=== PATIENT | male | born 1965 | race Caucasian/White ===

== ENCOUNTER 2022-11-11 08:10 | Outpatient (CLI) | payer OTHER, SELFPAY | END 2022-11-11 08:11 | disposition home or self-care (01) | LOC: NFLDREF 12:17 | PROVIDERS: PCP Internal Medicine; Referring Provider Family Medicine; Visit Provider Internal Medicine | DX: Z00.00 Encounter for general adult medical examination without abnormal findings (principal); Z13.6 Encounter for screening for cardiovascular disorders; Z12.5 Encounter for screening for malignant neoplasm of prostate; Z13.9 Encounter for screening, unspecified | CPT/HCPCS: 80053; 80061; 84153 ==

== ENCOUNTER 2023-01-22 10:08 | Outpatient (CLI) | payer OTHER, SELFPAY ==
--- NOTE | 2023-01-22 11:18 | W.ANESCHARGE ---
Anesthesia Charges Start Date/Time Anesthesia Start Date: 01/22/23 Anesthesia Start Time: 10:52 Stop Date/Time Anesthesia Stop Date: 01/22/23 Anesthesia Stop Time: 11:17
--- NOTE | 2023-01-22 11:34 | W.ANESCHARGE ---
Anesthesia Charges Start Date/Time Anesthesia Start Date: 01/22/23 Anesthesia Start Time: 10:52 Stop Date/Time Anesthesia Stop Date: 01/22/23 Anesthesia Stop Time: 11:17
== END 2023-01-22 10:09 | disposition home or self-care (01) ==
LOC: OP CLINIC 10:08
PROVIDERS: PCP Internal Medicine; Visit Provider Internal Medicine
DX: Z12.11 Encounter for screening for malignant neoplasm of colon (principal); K57.30 Diverticulosis of large intestine without perforation or abscess without bleeding
CPT/HCPCS: 00811; 45378; J2704

== ENCOUNTER 2023-11-12 08:10 | Outpatient (CLI) | payer OTHER, SELFPAY ==
--- OUTSIDE RECORDS SUMMARY | 2023-11-12 11:53 | XMS_ITS | Continuity of Care Document ---
Author Organization [facility] Address [address] [place] [address] Phone Care Team Providers Care Real Estate Investor Name Role Phone [facility], Miscellaneous Unavailable Unavailable Advance Directives Directive Yes / No Effective Date File Name No Information Encounters Encounter Description Practice Location Reason(s) For Visit Diagnoses Date Provider Providers Copied on Encounter [facility], [address], [place], [address], [place] tel:[phone] [facility] No Information [facility] Miscellan eous. [address], [address], [place], [place], [id number] , [place]. tel:[phone] Family History Family Member Type Diagnosis Age At Onset No Information Payers Payer name Insurance type Covered republican ID Authoriza tion(s) No Information Social History Type Description Quantity Date Captured Comments Sex Male Smoking Status No Information Chief Complaint And Reason For Visit No Information Reason For Referral Reason For Referral No Information History Of Present Illness Encounter Date Complaint History Of Prese nt Illness No Information Functional Status Date Functional Assessmen t No Information Instructions Date Instruction Additional Infor mation No Information Assessments Type Assessment Date No Information Patient Care Teams Name Effective Dates (start - stop) Status Members No Information
--- OUTSIDE RECORDS SUMMARY | 2023-11-12 11:53 | XMS_ITS | Clinical Summary ---
Author Organization [employer] [facility] Address [place], [place] [address] Care Team Providers Care Baby Stroller Rental Clerk Name Role Phone Julien Brumfield MD Primary Care Provider [phone] Allergies No known active allergies Medications Medication Sig Dispensed Refills Start Date End Date Status ascorbic acid (VITAMIN C) 1,000 mg tablet Take 1 tablet by mouth once daily. 0 01/02/2011 Active ibuprofen (ADVIL; MOTRIN) 200 mg tablet Take 2 tablets by mouth every 6 hours if needed. 0 01/28/2011 Active acyclovir (ZOVIRAX) 800 mg tabletIndications:Rec urrent herpes simplex TAKE ONE TABLET BY MOUTH THREE TIMES DAILY FOR 5 DAYS 45 tablet 08/12/2016 Active aspirin (ECOTRIN) 81 mg enteric coated tablet Take 1 tablet by mouth once daily with a meal. 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 Herpes simplex without mention of complication 0 08/27/2008 Overview (08/27/2008): Recurrent/Intermittent Problems Insomnia, unspecified 08/27/2008 IBS (irritable bowel syndrome) 08/27/2008 Overview (08/27/2008): A reflection of Stress? Resolved Problems Problem Noted Date Diagnosed Date Resolved Date Routine general medical exam ination at a health care facility 08/27/2008 04/12/2012 Patellar bursitis 08/27/2008 12/03/2009 Immunizations Name Administration Dates Next Due Hepatitis A (Adult) 08/27/2008,01/13/2008 Influenza, IIV3 (Age >=3 years) 12/03/2009,01/12 Influenza, IIV4 01/26/2017,11/28/2014 Influenza,LAIV4 Live Intranasal (Flumist) 2010 Td (Age >=7 Years) 08/09/2015 Tdap 03/26/2005 Family History Medical History Relation Name Comments Cancer Brother 1 Garth Testicular Ca Heart Disease Father Ethan Pacemaker Other Father Ethan Ulcerative Coli tis Cancer Mother Popines Esophageal Ca Anesthesia Problem No Family History Blood Disease No Family History Relation Name Status Comments Brother 1 Garth Alive Brother 2 Sebas Alive Father Ethan Alive Mother Alaina (Age 77) Social History Tobacco Use Types Packs/Day Years Used Date Smoking Tobacco: Former Cigarettes 0 02/16/1984 - 02/15/1999 Smokeless Tobacco: Never Tobacco Cessation:Counseling Given: Yes Alcohol Use Standard Drinks/Week Comments Yes 14 (1 standard drink = 0.6 oz pu re alcohol) 2-3 wine/day PHQ-2 Answer Date Recorded PHQ-2 Score 2 04/17/2018 Social Connections Answer Date Recorded Frequency of Communication with Friends and Fami ly Not on file 05/21/2023 Financial Resource Strain Answer Date R ecorded Difficulty of Paying Living Expenses Not on file 02/14/2021 Difficulty of Paying Living Expenses Not on file 02/14/2021 Sex and Gender Information Value Date Recorded Sex Assigned at Male 02/05/2020 9:26 PM PHYSICAL METEOROLOGIST Gender Identity Male 02/05/2020 9:26 PM PHYSICAL METEOROLOGIST Sexual Orientation Straight 02/05/2020 9: 26 PM PHYSICAL METEOROLOGIST Obstetrics History Last Filed Vital Signs Vital Sign Reading Time Taken Comments Blood Pressure 128/86 05/21/2023 11:20 AM CDT Pulse 78 05/21/2023 11:20 AM CDT Temperature 36.8 ??C (98.3 ??F) 05/21/2023 1 1:20 AM CDT Respiratory Rate - - Oxygen Saturation 99% 05/21/2023 11: 20 AM CDT Inhaled Oxygen Concentration - - Weight 84.2 kg (185 lb 11.2 oz) 024 11:20 AM CDT shoes on Height 171.8 cm (5' 7.64) 02/24/2017 9:55 AM CS T Body Mass Index 28.54 02/24/2017 9:55 AM PHYSICAL METEOROLOGIST Plan of Treatment Health Maintenance Due Date Last Done Comments HIV for age 15-65 11/03/1978 Hepatitis C screening for age 18-79 11/03/1981 Zoster (shingles) series for age 50+ (1 of 2) 11/03/2013 Fecal testing non-DNA (FIT,FOBT,iFOBT) for age 45-75 08/07/2016 08/08/2015 BMI (ht and wt on same day) for age 18+ 02/24/2018 02/24/2017, 04/29/2016, 01/13/2016, Additional history exists Depression screening for age 12+ 04/13/2019 04/13/2018, 04/06/2018, 03/30/2018, Additional history exists Lipids for age 45-75 09/14/2019 09/13/2014, 09/09/2012, 12/06/2009, Additional history exists COVID-19 vaccine series (2023- season) 2023 11/10/2022, 10/26/2021, 05/15/2021, Additional history exists Influenza for age 50-64 10/17/2023 01/27/20 17, 11/28/2014, 12/03/2009, Additional history exists Tetanus booster 08/08/2025 08/09/2015, 03/26/2005 Tdap Completed 03/26/2005 Pneumococcal series for age 6-64 Aged Out No longer eligible based on patient's age to complete this topic Procedures Procedure Name Priority Date/Time Associated Diagnosis Comments OCCULT BLOOD IFOBT STOOL Routine 08/08/2015 11:28 AM CDT Special screening for malignant neoplasms, colon LIPID PANEL W REFLEX MEASURED LDL Routine 09/13/2014 10:20 AM CDT Screening for ischemic heart disease from Last 3 Months or Most Recently Relevant to Health Maintenance Results * OCCULT BLOOD IFOBT STOOL (08/08/2015 11:28 AM CDT) STOOL BLOOD ,IFOBT Negative Negative 08/08/2015 11:37 AM CDT [facility] Stool STOOL SPECIMEN / Unknown Non-Blood / Unknown 08/08/2015 11:28 AM CDT 08/08/2015 11:28 AM CDT Manuelito Boyd MD LABORATORY Performing Organization Address City/[facility]/ZIP Co de Phone Number [facility] [address] [place] [address], [place] [phone] * LIPID PANEL W REFLEX MEASURED LDL (09/13/2014 10:20 AM CDT) CHOLESTEROL,TOTAL 159 100 - 199 mg/dL 09/13/2014 10:57 AM CDT [facility] TRIGLYCERIDES 39 <150 mg/dL 09/13/2014 10:57 AM CDT [facility] HDL CHOLESTEROL 70 >40 mg/dL 09/13/2014 10:57 AM CDT [facility] NON-HDL CHOLESTEROL 89 <145 mg/dl 09/13/2014 10:57 AM CDT [facility] CHOL/HDL RATIO 2.27 <4.50 09/13/2014 10:57 AM CDT [facility] LDL CHOLESTEROL 81 <=130 mg/dL 09/13/2014 10:57 AM CDT [facility] PATIENT STATUS FASTING 09/13/2014 10:57 AM CDT [facility] Blood specimen (specimen) BLOOD SPECIMEN / Unknown Venipuncture / Unknown 09/13/2014 10:20 AM CDT 09/13/2014 10:20 AM CDT Manuelito Boyd MD CHEMISTRY [facility] [address] [place] [address], [place] [phone] from Last 3 Months or Most Recently Relevant to Health Maintenance Care Teams Baby Stroller Rental Clerk Relationship Specialty Start Date End Date Julien Brumfield MD [address] [place] [address] PCP - General Family Practice 03/17/13
--- OUTSIDE RECORDS SUMMARY | 2023-11-12 11:53 | XMS_ITS | Clinical Summary ---
Author Organization [facility] Address [address] [place] [address] Care Team Providers Care Yarding Supervisor Name Role Phone Jesus Ibarra MD Primary Care Provider [phone] Source Comments You are receiving this document as you are listed as the primary care provider,follow-up provider, or the patient has been referred to you for consultation.This is in compliance with the Medicare andMedicaid EHR Incentive Program,which states Providers who transition their patient to another setting of careor provider of care or refers their patient to another provider of care shouldprovide summary care record for each transition of care or referral. [facility] Allergies No known active allergies Medications Medication Sig Dispensed Refills Start Date End Date Status ibuprofen (AKA MOTRIN) 800 MG tablet Take 1 tablet by mouth 3 times daily. LW Addl Instr:Take with food. 90 12 10/30/2005 Active Resolved Problems Problem Noted Date Diagnosed Date Resolved Date Cervical spine pain 11/30/2018 02/15/20 19 Lumbar pain 11/30/2018 02/14/2019 Cervical radiculitis 11/30/2018 019 Social History Tobacco Use Types Packs/Day Years Used Date Smoking Tobacco: Never Assessed Sex and Gender Information Value Date Recorded Sex Assigned at Not on file Gender Identity Not on file Sexual Orientation Not on file Plan of Treatment Health Maintenance Due Date Last Done Comments Colon Cancer Screening Plan Due 1965 Hep C Screening (Preventive Services) 1965 PSA Screening Discussion 1965 HIV Screening (Preventive Services) 1979 Adult Preventive Visit 11/03/1981 Cholesterol 11/03/1998 COVID-19 Vaccine ( season) 2023 06/05/2020 Influenza (#1) 2023 10/30/2019, 11/16, 11/24/2017, Additional history exists DTaP/Tdap/Td (4 - Tdap) 08/08/2025 08/09/19 16, 08/09/2015, 03/26/2005 RSV (1 - 1-dose 75+ series) 11/03/2038 HepA Aged Out 08/27/2008, 01/13/2008 No lo nger eligible based on patient's age to complete this topic Pneumococcal Aged Out 10/21/2017 No longer eligi ble based on patient's age to complete this topic Zoster/Shingles Completed 04/22/2018, 10/21/2017 HepB Aged Out No longer eligi ble based on patient's age to complete this topic Hib Aged Out No longer eligi ble based on patient's age to complete this topic IPV (Polio) Aged Out No longer eligi ble based on patient's age to complete this topic MCV4 Aged Out No longer eligi ble based on patient's age to complete this topic Care Teams Yarding Supervisor Relationship Specialty Start Date End Date Jesus Ibarra MD [address] [place] [address] PCP - General Sports Medicine 11/17/18
== END 2023-11-12 08:11 | disposition home or self-care (01) ==
LOC: NFLDREF 11:52
PROVIDERS: PCP Internal Medicine; Referring Provider Internal Medicine; Visit Provider Internal Medicine
DX: Z13.228 Encounter for screening for other metabolic disorders (principal); Z13.220 Encounter for screening for lipoid disorders; Z12.5 Encounter for screening for malignant neoplasm of prostate
CPT/HCPCS: 80053; 80061; G0103

== ENCOUNTER 2023-12-13 14:29 | Outpatient (CLI) | payer OTHER, SELFPAY ==
--- OUTSIDE RECORDS SUMMARY | 2023-12-13 14:32 | XMS_ITS | Clinical Summary ---
Author Organization [facility] Address [address] [place] [address] Care Team Providers Care Emergency Room Physician Name Role Phone Jesus Ibarra MD Primary Care Provider [phone] Source Comments You are receiving this document [...] Preventive Visit 11/03/1981 Cholesterol 11/03/1998 COVID-19 Vaccine (25 season) 2023 06/05/2020 Influenza (#1) 2023 10/30/2019, [...] on patient's age to complete this topic RSV Aged Out No longer eligi ble based on patient's age to complete this topic MCV4 Aged Out No longer eligi ble based on patient's age to complete this topic Care Teams Emergency Room Physician Relationship Specialty Start Date End Date Jesus Ibarra MD [address] [place] [address] PCP - General Sports Medicine 11/17/18
--- OUTSIDE RECORDS SUMMARY | 2023-12-13 14:32 | XMS_ITS | Clinical Summary ---
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 Herpes simplex without mention of complication 0 [...] Sex Assigned at Male 02/05/2020 9:26 PM SAP GATHERER Gender Identity Male 02/05/2020 9:26 PM SAP GATHERER Sexual Orientation Straight 02/05/2020 9: 26 PM SAP GATHERER Obstetrics History Last Filed Vital Signs Vital [...] Body Mass Index 28.54 02/24/2017 9:55 AM SAP GATHERER Plan of Treatment Health Maintenance Due Date [...] ,IFOBT Negative Negative 08/08/2015 11:37 AM CDT [facility] Stool STOOL SPECIMEN / Unknown Non-Blood / Unknown 08/08/2015 11:28 AM CDT 08/08/2015 11:28 AM CDT Manuelito Boyd MD LABORATORY Performing Organization Address City/[facility]/ZIP Co de Phone Number [facility] [address] [place] [address], [place] [phone] * LIPID PANEL W REFLEX MEASURED LDL (09/13/2014 10:20 AM CDT) CHOLESTEROL,TOTAL 159 100 - 199 mg/dL 09/13/2014 10:57 AM CDT [facility] TRIGLYCERIDES 39 <150 mg/dL 09/13/2014 10:57 AM CDT [facility] HDL CHOLESTEROL 70 >40 mg/dL 09/13/2014 10:57 AM CDT [facility] NON-HDL CHOLESTEROL 89 <145 mg/dl 09/13/2014 10:57 AM CDT [facility] CHOL/HDL RATIO 2.27 <4.50 09/13/2014 10:57 AM CDT [facility] LDL CHOLESTEROL 81 <=130 mg/dL 09/13/2014 10:57 AM CDT [facility] PATIENT STATUS FASTING 09/13/2014 10:57 AM CDT [facility] Blood specimen (specimen) BLOOD SPECIMEN / Unknown Venipuncture / Unknown 09/13/2014 10:20 AM CDT 09/13/2014 10:20 AM CDT Manuelito Boyd MD CHEMISTRY [facility] [address] [place] [address], [place] [phone] from Last 3 Months or Most Recently Relevant to Health Maintenance Care Teams Tuft Machine Operator Relationship Specialty Start Date End Date Julien Brumfield MD [address] [place] [address] PCP - General Family Practice 03/17/13
--- NOTE | 2024-01-04 12:33 | W.PM.SLEEP ---
Sleep Study Details Details Interpreting Provider: Gilbert Date of Sleep Study: 12/13/23 Sleep Study Details: STUDY TYPE:? Home unattended ? BMI:? 28.1 ORDERING PROVIDER:? Gilbert INDICATION:? Concerned about sleep apnea ? SLEEP SUMMARY:? 478 minutes monitored RESPIRATORY SUMMARY:? AHI 6, low oxygen 89, snoring 94.6% PERIODIC LIMB MOVEMENTS OF SLEEP:? Not recorded CARDIAC:? Range 51-105, mean 64.8 IMPRESSION:? Mild obstructive sleep apnea RECOMMENDATION: If symptomatic treatment options include CPAP dental appliance and/or airway expansion surgery.
== END 2023-12-13 14:30 | disposition home or self-care (01) ==
LOC: SLEEP 14:29
PROVIDERS: PCP Internal Medicine; Visit Provider Otolaryngology
DX: G47.33 Obstructive sleep apnea (adult) (pediatric) (principal)
CPT/HCPCS: 95806

== ENCOUNTER 2023-12-24 12:31 | Outpatient (CLI) | payer OTHER, SELFPAY ==
--- OUTSIDE RECORDS SUMMARY | 2023-12-24 12:34 | XMS_ITS | Clinical Summary ---
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 Herpes simplex without mention of complication 0 [...] Sex Assigned at Male 02/05/2020 9:26 PM COMPUTER GAME TESTER Gender Identity Male 02/05/2020 9:26 PM COMPUTER GAME TESTER Sexual Orientation Straight 02/05/2020 9: 26 PM COMPUTER GAME TESTER Obstetrics History Last Filed Vital Signs Vital [...] Body Mass Index 28.54 02/24/2017 9:55 AM COMPUTER GAME TESTER Plan of Treatment Health Maintenance Due Date [...] ,IFOBT Negative Negative 08/08/2015 11:37 AM CDT [facility] Stool STOOL SPECIMEN / Unknown Non-Blood / Unknown 08/08/2015 11:28 AM CDT 08/08/2015 11:28 AM CDT Manuelito Boyd MD LABORATORY [facility] [address] [place] [address], [place] [phone] * LIPID PANEL W REFLEX MEASURED LDL (09/13/2014 10:20 AM CDT) CHOLESTEROL,TOTAL 159 100 - 199 mg/dL 09/13/2014 10:57 AM CDT [facility] TRIGLYCERIDES 39 <150 mg/dL 09/13/2014 10:57 AM CDT [facility] HDL CHOLESTEROL 70 >40 mg/dL 09/13/2014 10:57 AM CDT [facility] NON-HDL CHOLESTEROL 89 <145 mg/dl 09/13/2014 10:57 AM CDT [facility] CHOL/HDL RATIO 2.27 <4.50 09/13/2014 10:57 AM CDT [facility] LDL CHOLESTEROL 81 <=130 mg/dL 09/13/2014 10:57 AM CDT [facility] PATIENT STATUS FASTING 09/13/2014 10:57 AM CDT [facility] Blood specimen (specimen) BLOOD SPECIMEN / Unknown Venipuncture / Unknown 09/13/2014 10:20 AM CDT 09/13/2014 10:20 AM CDT Manuelito Boyd MD CHEMISTRY [facility] [address] [facility] [place] [address], [place] [phone] from Last 3 Months or Most Recently Relevant to Health Maintenance Care Teams Central Office Equipment Engineer Relationship Specialty Start Date End Date Julien Brumfield MD [address] [place] [address] PCP - General Family Practice 03/17/13
--- OUTSIDE RECORDS SUMMARY | 2023-12-24 12:34 | XMS_ITS | Clinical Summary ---
Author Organization [facility] Address [address] [place] [address] Care Team Providers Care Supply Chain Director Name Role Phone Jesus Ibarra MD Primary Care Provider [phone] Source Comments You are receiving this document [...] age to complete this topic Care Teams Supply Chain Director Relationship Specialty Start Date End Date Jesus Ibarra MD [address] [place] [address] PCP - General Sports Medicine 11/17/18
[2023-12-24 12:58] LABS: Creatinine* 1.2 mg/dL (0.5-1.5); Estimated Glomerular Filt Rate 69 ml/min
--- NOTE | 2023-12-24 13:00 | CRLHL7_ITS ---
For Patients: As a result of the Century Cures Act, medical imaging exams and procedure reports are released immediately into your electronic medical record. You may view this report before your referring provider. If you have questions, please contact your health care provider. INDICATION: VENTRAL HERNIA TECHNIQUE: CT abdomen and pelvis acquired with 100 cc Isovue 370 IV contrast. COMPARISON: None. FINDINGS: Lower chest: The visualized lower lungs are aerated. No pleural or pericardial effusion. ABDOMEN: Liver: Normal enhancement. No focal suspicious hepatic lesions. Gallbladder and biliary: Normal gallbladder without radiopaque stone. Normal caliber bile ducts. Spleen: Normal size and enhancement. Pancreas: Normal enhancement without peripancreatic inflammatory changes or ductal dilatation. Adrenal glands: Normal adrenal glands. Kidneys and ureters: Normal enhancement. No radio-opaque calculi. No hydroureteronephrosis. GI tract: Stomach is partially distended with oral debris and air. Normal caliber small and large bowel loops. Normal appendix. Colonic diverticulosis without diverticulitis. Vascular structures: Normal caliber aorta with atherosclerotic calcifications. Lymph nodes: No lymphadenopathy in the abdomen or pelvis by size criteria. Peritoneum: No free air, free fluid, or focal drainable fluid collection. PELVIS: Genitourinary system: Normal urinary bladder. Normal-sized prostate. SKELETAL STRUCTURES AND SOFT TISSUES: Tiny supraumbilical midline fat containing ventral hernia. Heterotopic ossification abutting the ischial tuberosities likely reflecting remote hamstrings injuries. IMPRESSION: Tiny supraumbilical midline fat containing ventral hernia. Please note that all CT scans at this facility use dose modulation, iterative reconstruction, and/or weight-based dosing when appropriate to reduce radiation dose to as low as reasonably achievable. Dictated by Manuelito Moise MD @ 12/26/2023 11:04:11 AM (Electronically Signed)
== END 2023-12-24 12:32 | disposition home or self-care (01) ==
LOC: CT 12:32
PROVIDERS: PCP Internal Medicine; Visit Provider Internal Medicine
DX: K43.9 Ventral hernia without obstruction or gangrene (principal)
CPT/HCPCS: 36415; 74177; 82565; Q9967